=== PATIENT | female | born 1975 | race Caucasian/White ===

== ENCOUNTER 2016-08-13 18:02 | Emergency (ER) | payer OTHER, MEDICAID ==
[~2016-08-13] VITALS: Ht 162.6 cm; Wt 60.0 kg
[~2016-08-13 18:02] MED LIST: DIPH1TAB36
[2016-08-13 18:03] VITALS: BP 157/90; PULSE 104; RESP 20; TEMP 99.3; O2SAT 100
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
[2016-08-13 19:47] VITALS: BP 171/91; PULSE 94; RESP 16; O2SAT 98
[2016-08-13] MEDS ORDERED: IBUPROFEN 600 MG TAB PO ONE (20:15)
[2016-08-13] MEDS ORDERED: METHOCARBAMOL 500 MG TAB PO ONE (20:15)
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
[2016-08-13] MEDS ORDERED: NAPR500 PO (21:31)
[2016-08-13] MEDS ORDERED: CYCL1TAB29 PO (21:31)
[2016-08-13 21:38] VITALS: BP 132/79
== END 2016-08-13 21:39 | disposition home or self-care (01) ==
LOC: NEPD 18:02
DX: S16.1XXA Strain of muscle, fascia and tendon at neck level, initial encounter (principal); M54.5 Low back pain; J45.909 Unspecified asthma, uncomplicated; I10 Essential (primary) hypertension; F32.9 Major depressive disorder, single episode, unspecified; F41.9 Anxiety disorder, unspecified; F17.200 Nicotine dependence, unspecified, uncomplicated; Z88.0 Allergy status to penicillin; V43.54XA Car driver injured in collision with van in traffic accident, initial encounter
CPT/HCPCS: 72100; 72125; 99284